=== PATIENT | male | born 1985 | race Caucasian/White ===

== ENCOUNTER → 2016-03-12 | Outpatient (CLI) | payer SELFPAY | LOC: GMA 11:21 | PROVIDERS: ATTEND Nurse Practitioner Acute Care | DX: Z20.2 Contact with and (suspected) exposure to infections with a predominantly sexual mode of transmission (principal) ==

== ENCOUNTER 2017-03-15 10:12 | Emergency (ER) | payer SELFPAY ==
[2017-03-15 10:24] VITALS: BP 114/82; TEMP 98; O2SAT 97
--- NOTE | 2017-03-15 10:30 | ED.PDOC ---
History of Present Illness - General Chief Complaint: Skin/Abrasion/Tear Stated Complaint: abscess in right axilla Time Seen by Provider: 03/15/17 10:27 Source: patient Exam Limitations: no limitations - History of Present Illness Timing/Duration: 1 week Severity: severe Worsening Factors: movement Associated Symptoms: denies symptoms Allergies/Adverse Reactions: Allergies NO KNOWN ALLERGY Allergy (Verified 03/05/12 07:09) Home Medications: Ambulatory Orders Quetiapine Fumarate [Seroquel] 100 mg PO HS 03/04/12 Sulfamethoxazole-Trimethoprim [Bactrim Ds 800-160 mg] 1 tablet PO BID #20 tablet 03/15/17 traMADol 37.5MG/APAP 325MG [Ultracet] 1 ea PO .Q4H PRN #15 tab 03/15/17 Review of Systems - Review of Systems Constitutional: States: no symptoms reported. Denies: chills, fever, malaise EENTM: States: no symptoms reported Respiratory: States: no symptoms reported. Denies: cough, short of breath Cardiology: States: no symptoms reported Gastrointestinal/Abdominal: States: no symptoms reported. Denies: nausea, vomiting Genitourinary: States: no symptoms reported Musculoskeletal: States: no symptoms reported. Denies: joint pain, joint swelling, muscle pain Skin: States: see HPI, lesions, lumps Neurological: States: no symptoms reported Endocrine: States: no symptoms reported Hematologic/Lymphatic: States: no symptoms reported Past Medical History (General) - Patient Medical History Hx Seizures: No Hx Stroke: No Hx Asthma: No Hx of COPD: No Hx Cardiac Disorders: No Hx Congestive Heart Failure: No Hx Pacemaker: No Hx Hypertension: No Hx Diabetes: No Hx MRSA: No Surgical History: no surgical history - Vaccination History Hx Tetanus, Diphtheria Vaccination: - unknown Hx Influenza Vaccination: No - Social History Hx Tobacco Use: Yes Hx Alcohol Use: No Hx Substance Use: No Hx Physical Abuse: No Hx Emotional Abuse: No Family Medical History - Family History Father Family History: Unknown Living Status: Unknown Physical Exam - Physical Exam General Appearance: Alert, Anxious Eye Exam: bilateral normal Ears, Nose, Throat: hearing grossly normal, normal ENT inspection Neck: full range of motion, supple Respiratory: lungs clear Cardiovascular/Chest: regular rate, rhythm Gastrointestinal/Abdominal: non tender, soft Extremity: other - Has fluctuant mass in R axilla, 3-4 cm , redness, very tender , decreased ROM of R shoulder Procedures - Incision and Drainage #1 Procedure and Prep: betadine prep, sterile dressings applied, gauze wick placed , pus drained, other - 1% lidocaine local, loculations broken, drained 3-4 ml pus, 1.5 cm incision Blade Size: 11 Departure - Departure Clinical Impression: Abscess Disposition: Discharge to Home or Self Care Condition: Fair Departure Forms: ED Discharge - Pt. Copy, Patient Portal Self Enrollment Instructions: DI for Abrasion Referrals: Jevon Jon MD [Primary Care Provider] - 1-2 Weeks Prescriptions: Sulfamethoxazole-Trimethoprim [Bactrim Ds 800-160 mg] 1 tablet PO BID #20 tablet traMADol 37.5MG/APAP 325MG [Ultracet] 1 ea PO .Q4H PRN #15 tab PRN Reason: Pain -- Mild To Moderate Home Medications: Ambulatory Orders Quetiapine Fumarate [Seroquel] 100 mg PO HS 03/04/12 Sulfamethoxazole-Trimethoprim [Bactrim Ds 800-160 mg] 1 tablet PO BID #20 tablet 03/15/17 traMADol 37.5MG/APAP 325MG [Ultracet] 1 ea PO .Q4H PRN #15 tab 03/15/17
[2017-03-15] MEDS ORDERED: LIDOCAINE 1% 10 ML VIAL INJ ONE (10:40)
[2017-03-15] MEDS ORDERED: PLAIN PACKING STRIP 1/4 1 EA BTTL TOP ONE (10:41)
[2017-03-15] MEDS ORDERED: HYDROcodone 7.5MG/APAP 325MG 1 EA TAB PO ONE (11:07)
== END 2017-03-15 11:13 | disposition home or self-care (01) ==
LOC: ER 10:12
DX: L02.411 Cutaneous abscess of right axilla (principal)